=== PATIENT | female | born 1960 | race Two or more races ===

== ENCOUNTER 2022-06-07 14:04 | Emergency (ER) | payer OTHER ==
[~2022-06-07] VITALS: Ht 165.1 cm; Wt 89.8 kg
[2022-06-07] MEDS ORDERED: METFORMIN HCL1000 M2 PO (14:58)
[2022-06-07] MEDS ORDERED: HUMALOG100 UNIT/2 SQ (14:58)
== END 2022-06-07 17:32 | disposition home or self-care (01) ==
LOC: ER 14:04
DX: M25.561 Pain in right knee (principal); W19.XXXA Unspecified fall, initial encounter; Y93.9 Activity, unspecified; Y92.9 Unspecified place or not applicable; M54.40 Lumbago with sciatica, unspecified side; M51.37 Other intervertebral disc degeneration, lumbosacral region